=== PATIENT | female | born 1955 | race Caucasian/White ===

== ENCOUNTER 2017-08-20 14:01 | Emergency (ER) | payer OTHER ==
[2017-08-20 14:13] VITALS: TEMP 97.5; BMI 25.6
--- NOTE | 2017-08-20 14:32 | PDOC ---
Attending Attestation - Resident Resident Name: Donte Acevedo - HPI HPI: 08/21/17 09:56 Pt presents to the ED complaining of a several day history of a feeling in her chest that she describes as "sadness". Denies feelings of pressure, pain, burning, squeezing or any other sensations. Pain is non exertional and not accompanied by shortness of breath. Denies associated symptoms. - Physicial Exam PE: 08/21/17 10:00 Agree with resident exam. Patient is well appearing. Lungs are clear, heart is regular rate and rhythm without murmurs. - Medical Decision Making 08/21/17 10:01 Pt presents to the ED complaining of chest discomfort. Symptoms are extremely atypical of cardiac disease. Heart score is 1 and EKg is normal. Will discharge home with follow up with PMD.
--- NOTE | 2017-08-20 14:40 | PDOC ---
History of Present Illness - General Chief Complaint: Chest Pain Stated Complaint: CHEST PAIN Time Seen by Provider: 08/20/17 14:30 - History of Present Illness Initial Comments: 08/20/17 14:39 62 yo F with no significant pmh presents with chest discomfort. Patient reports acute chest discomfort for the past week. Denies chest pressure, tightness, sharp pleuritic pain, numbness/tingling but describes sensation as "chest sadness."Asx. with intermittent tinnitus, and denies hearing loss, vertigo, or lightheadedness. Denies chest trauma, or identifiable triggers. No jaw, neck, shoulder, or back pain. Denies N/V, fevers/chills, cough, SOB, urinary complaints, abdominal/bowel complaints, sensory disturbance, weakness. Denies h/ o CAD/ID, stent placement, CABG. Denies medication use. Past History - Past Medical History Allergies/Adverse Reactions: Allergies Allergy/AdvReac Type Severity Reaction Status Date / Time No Known Allergies Allergy Verified 08/20/17 14:05 Home Medications: Ambulatory Orders NK [No Known Home Medication] 08/20/17 COPD: No Hypercholesterolemia: Yes - Suicide/Smoking/Psychosocial Hx Smoking History: Never smoked Have you smoked in the past 12 months: No Information on smoking cessation initiated: No Hx Alcohol Use: No Drug/Substance Use Hx: No Substance Use Type: None Review of Systems - Review of Systems Comments:: 08/20/17 14:39 GENERAL/CONSTITUTIONAL: No fever or chills. No weakness. HEAD, EYES, EARS, NOSE AND THROAT: No change in vision. No ear pain or discharge. No sore throat.- CARDIOVASCULAR:+ chest discomfort. No shortness of breath RESPIRATORY: No cough, wheezing, or hemoptysis. GASTROINTESTINAL: No nausea, vomiting, diarrhea or constipation. GENITOURINARY: No dysuria, frequency, or change in urination. MUSCULOSKELETAL: No joint or muscle swelling or pain. No neck or back pain. SKIN: No rash NEUROLOGIC: + Tinnitus. No headache, vertigo, loss of consciousness, or change in strength/sensation. ENDOCRINE: No increased thirst. No abnormal weight change HEMATOLOGIC/LYMPHATIC: No anemia, easy bleeding, or history of blood clots. ALLERGIC/IMMUNOLOGIC: No hives or skin allergy. *Physical Exam - Vital Signs Last Vital Signs Temp Pulse Resp BP Pulse Ox 97.5 F L 63 18 138/79 100 08/20/17 14:10 08/20/17 14:10 08/20/17 14:10 08/20/17 14:10 08/20/17 14:10 - Physical Exam Comments: 08/20/17 14:40 GENERAL: Awake, alert, and fully oriented, in no acute distress HEAD: No signs of trauma, normocephalic, atraumatic EYES: PERRLA, EOMI, sclera anicteric, conjunctiva clear ENT: Auricles normal inspection, hearing grossly normal, nares patent, oropharynx clear without exudates. Moist mucosa NECK: Normal ROM, supple, no lymphadenopathy, JVD, or masses LUNGS: No distress, speaks full sentences, clear to auscultation bilaterally HEART: Regular rate and rhythm, normal S1 and S2, no murmurs, rubs or gallops, peripheral pulses normal and equal bilaterally. EXTREMITIES : Normal inspection, Normal range of motion, no edema. No clubbing or cyanosis. SKIN: Warm, Dry, normal turgor, no rashes or lesions noted. ED Treatment Course - LABORATORY CBC & Chemistry Diagram: 08/20/17 15:00 08/20/17 15:00 Medical Decision Making - Medical Decision Making 08/20/17 15:22 62 yo F with no significant pmh presents with chest discomfort. Patient reports non pleuritic, acute chest discomfort for the past week asx. with intermittent tinnitus. Patient denies hearing loss, vertigo, or lightheadedness, chest trauma , jaw, neck, shoulder, or back pain. Denies N/V, fevers/chills, cough, SOB, urinary complaints, abdominal/bowel complaints, sensory disturbance, weakness. Denies h/o CAD/ID, stent placement, CABG. Physical exam unremarkable with absent cardiac and pulmonary findings and patient hemodynamically stable. Patient without PCP, and potential risk factors for ACS/ID. Differential also includes influenza, tinniuts, and less likely menierres disease (patient does not exhibit hearing loss, or vertigo). Absent neuro deficits, low suspicion of CVA/TIA. ED Course: 08/20/17 15:25 CBC, CMP, UA, Influenza EKG, CXR 08/20/17 15:32 EKG: NSR with absent STD, SALENA, or TWI. Normal axis and intervals. 08/20/17 15:35 CBC: unremarkable 08/20/17 16:35 CMP: Unremarkable UA: Neg CXR: No acute cardiopulmonary findings. Patient stable for discharge with recommended f/u with PCP. *DC/Admit/Observation/Transfer Diagnosis at time of Disposition: Tinnitus of both ears - Discharge Dispostion Disposition: HOME Condition at time of disposition: Stable Admit: No - Referrals Referrals: Vinicio Vargas MD [Staff Physician] - - Patient Instructions Printed Discharge Instructions: DI for Atypical Chest Pain Additional Instructions: Please return to the emergency department with any new or worsening symptoms or concerns. Please follow up with ear nose throat doctor or primary care within 1- 2 weeks. Print Language: [email or web address] - Post Discharge Activity - Attestations Physician Attestion: 08/20/17 16:37 I attest to the documentation provided in this note.
[2017-08-20 15:25] LABS: BASO % 0.2 % (0-2.0); EOS % 1.2 % (0-4.5); HEMATOCRIT 37.7 % (32.4-45.2); HEMOGLOBIN 12.4 GM/dL (10.7-15.3); LYMPH % 35.7 % (8-40); MCH 29.8 pg (25.7-33.7); MCHC 32.9 g/dl (32.0-36.0); MEAN CELL VOLUME 90.6 fl (80-96); MEAN PLT VOLUME 8.8 fl (7.5-11.1); MONO % 10.6 % (3.8-10.2); NEUT % 52.3 % (42.8-82.8); PLATELET COUNT 215 K/MM3 (134-434); RBC 4.16 M/mm3 (3.60-5.2); RDW 12.5 % (11.6-15.6); WHITE BLOOD COUNT 5.5 K/mm3 (4.0-10.0)
[2017-08-20 15:38] LABS: INR 0.96 (0.82-1.09); PROTHROMBIN TIME (PATIENT) 10.8 SEC (9.98-11.88)
[2017-08-20 15:56] LABS: ALBUMIN 3.6 g/dl (3.4-5.0); ANION GAP 5 (8-16); BILIRUBIN,TOTAL 0.2 mg/dL (0.2-1.0); BLOOD UREA NITROGEN 21 mg/dL (7-18); CALCIUM 8.5 mg/dL (8.5-10.1); CHLORIDE 105 mmol/L (98-107); CO2 29 mmol/L (21-32); CREATININE 0.6 mg/dL (0.55-1.02); GLUCOSE,RANDOM 89 mg/dL (74-106); POTASSIUM 4.2 mmol/L (3.5-5.1); SGOT/AST 18 U/L (15-37); SGPT/ALT 20 U/L (12-78); SODIUM 139 mmol/L (136-145); TOT PROT 7.3 g/dl (6.4-8.2)
[2017-08-20 15:58] LABS: ALK PHOS 111 U/L (45-117)
[2017-08-20 16:14] LABS: URINE APPEARANCE CLEAR; URINE BILIRUBIN NEGATIVE (NEGATIVE); URINE BLOOD NEGATIVE (NEGATIVE); URINE COLOR STRAW; URINE GLUCOSE (UA) NEGATIVE (NEGATIVE); URINE KETONE NEGATIVE (NEGATIVE); URINE LEUK ESTERASE NEGATIVE (NEGATIVE); URINE NITRITE NEGATIVE (NEGATIVE); URINE PROTEIN NEGATIVE (NEGATIVE); URINE UROBILINOGEN NEGATIVE mg/dL (0.2-1.0)
[2017-08-20 16:41] VITALS: BP 138/90; PULSE 64
--- NOTE | 2017-08-21 16:07 | EKG ---
Test Reason : Blood Pressure : / mmHG Vent. Rate : 063 BPM Atrial Rate : 063 BPM P-R Int : 182 ms QRS Dur : 088 ms QT Int : 410 ms P-R-T Axes : 050 -24 024 degrees QTc Int : 419 ms NORMAL SINUS RHYTHM NORMAL ECG NO PREVIOUS ECGS AVAILABLE Confirmed by Adithya Cruz ([id number]) on 08/21/2017 4:07:15 PM Referred By: Confirmed By:Adithya Cruz
== END 2017-08-20 18:10 | disposition home or self-care (01) ==
LOC: JER 14:01
DX: H93.13 Tinnitus, bilateral (principal); R07.89 Other chest pain
CPT/HCPCS: 36415; 71045-TC; 80053; 81003; 82550; 84484; 85025; 85610; 87804; 93005; 93010; 99283-25